=== PATIENT | female | born 1995 | race Caucasian/White ===

== ENCOUNTER → 2016-07-01 | Outpatient (CLI) | payer MEDICAID ==
--- NOTE | 2016-07-01 13:52 | RADIOLOGY REPORT PS360 ---
US PELVIS-TRANSVAGINAL ONLY HISTORY: PELVIC PAIN ORDERING PHYSICIAN: Alistair Pandey MD PATIENT AGE: 20 years COMPARISON: None FINDINGS: The uterus measures 8 x 3 x 4 cm. Endometrium is upper normal at 10 mm. There is a nabothian cyst at 7 mm. Right ovary is 4 x 2.4 cm and left ovary is 4 x 3.3 cm. There are multiple small follicles on both sides. There is a somewhat irregular shaped cyst in the mid aspect of the left ovary at 9 mm and could be due to ruptured cyst. There is a small amount fluid in the cul-de-sac. IMPRESSION: 1. Mildly thickened endometrium. 2. Multiple bilateral ovarian follicles with probable small ruptured cyst on the left and small amount fluid in the cul-de-sac
== END ==
LOC: RAD 07:44
DX: R10.2 Pelvic and perineal pain (principal)

== ENCOUNTER → 2016-07-22 | Outpatient (CLI) | payer MEDICAID ==
[2016-07-22 14:21] LABS: LYMPH # 2.2 K/mm3 (0.7-4.5); LYMPH % 19.2 % (10-50.0)
[2016-07-22 14:26] LABS: HEMOGLOBIN 13.8 g/dL (12.2-16.2)
[2016-07-22 14:39] LABS: ABO BLOOD TYPE A; RH BLOOD TYPE POSITIVE
[2016-07-22 17:40] LABS: AMPHETAMINES/METAMPHETAMINES NEGATIVE ng/mL (<1000)
[2016-07-25 08:38] LABS: HIV Screen 4th Generation wRfx Non Reactive (Non Reactive)
[2016-07-26 08:40] LABS: HBsAg Screen Negative (Negative); Rubella Antibodies, IgG <0.90 index (Immune >0.99)
[2016-07-26 09:42] LABS: Rapid Plasma Reagin, Quant Non Reactive (NonRea<1:1)
== END ==
LOC: LAB 13:58
PROVIDERS: Obstetrics & Gynecology
DX: Z36 Encounter for antenatal screening of mother (principal); Z04.8 Encounter for examination and observation for other specified reasons; Z34.01 Encounter for supervision of normal first pregnancy, first trimester
CPT/HCPCS: G0432

== ENCOUNTER → 2017-02-07 | Outpatient (CLI) | payer MEDICAID | LOC: LAB 17:05 | DX: Z36 Encounter for antenatal screening of mother (principal) ==

== ENCOUNTER 2017-03-06 13:21 | Outpatient (CLI) | payer MEDICAID ==
[~2017-03-06] VITALS: Ht 152.4 cm; Wt 88.0 kg
[2017-03-06 13:47] VITALS: BP 137/89
[2017-03-06 14:04] LABS: URINE BILIRUBIN - DIPSTICK NEGATIVE (NEG); URINE BLOOD NEGATIVE (NEG)
--- NOTE | 2017-03-07 09:56 | RADIOLOGY REPORT PS360 ---
US BIOPHYSICAL PROFILE COMPARISON: Ultrasound pelvis 07/01/2016 HISTORY: Possible premature rupture membranes TECHNIQUE: Limited exam with biophysical profile FINDINGS: There is a single fetus in cephalic presentation. Only a BPD measurement was obtained measuring 9.43 cm equaling 38 weeks and 3 days. The heart rate is 153 bpm. The placenta is anterior and mature in appearance. The ANNIE is calculated 12.11 cm. The cervix is 3.68 cm and closed. The biophysical profile was measured at 8 out of 8 IMPRESSION: Viable cephalic fetus estimated age 38 weeks and 3 days with normal biophysical profile.
== END 2017-03-06 16:09 | disposition home or self-care (01) ==
LOC: OBOUT 13:21 → OB 13:21 → OBOUT 16:09
PROVIDERS: Nurse Practitioner Obstetrics & Gynecology
DX: O26.893 Other specified pregnancy related conditions, third trimester (principal); Z3A.38 38 weeks gestation of pregnancy